=== PATIENT | female | born 1995 | race Caucasian/White ===

== ENCOUNTER 2018-09-10 23:27 | Emergency (ER) | payer MEDICAID, OTHER ==
[~2018-09-10] VITALS: Ht 160 cm; Wt 99.8 kg
[~2018-09-10 23:27] MED LIST: PREN-385 PO
[2018-09-10 23:30] VITALS: BP 127/64
--- NOTE | 2018-09-10 23:33 | NUR ---
TO LOBBY A/W BED, AMBULATORY
--- NOTE | 2018-09-10 23:44 | NUR ---
PT AMUBLATED TO BED #4
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
--- NOTE | 2018-09-11 00:11 | NUR ---
X-RAY AT BEDSIDE.
--- NOTE | 2018-09-11 00:21 | NUR ---
PATIENT TAKEN TO CT.
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
--- NOTE | 2018-09-11 01:28 | NUR ---
Patient discharged with v/s stable. Written and verbal after care instructions given and explained. Patient alert, oriented and verbalized understanding of instructions. Ambulatory with steady gait. All questions addressed prior to discharge. ID band removed. Patient advised to follow up with PMD. Rx of Claridge and Ibuprofen given. Patient educated on indication of medication including possible reaction and side effects. Opportunity to ask questions provided and answered.
== END 2018-09-11 01:28 | disposition home or self-care (01) ==
LOC: MED 23:27
DX: S00.81XA Abrasion of other part of head, initial encounter (principal); S20.319A Abrasion of unspecified front wall of thorax, initial encounter; S40.812A Abrasion of left upper arm, initial encounter; S40.811A Abrasion of right upper arm, initial encounter; S60.512A Abrasion of left hand, initial encounter; S60.811A Abrasion of right wrist, initial encounter; Z88.0 Allergy status to penicillin; Z79.899 Other long term (current) drug therapy; Y04.2XXA Assault by strike against or bumped into by another person, initial encounter; Y93.89 Activity, other specified; Y92.89 Other specified places as the place of occurrence of the external cause; Y99.8 Other external cause status
CPT/HCPCS: 70450; 73030; 73130; 81025; 90471; 90715; 99284; Q0092

== ENCOUNTER 2018-10-27 21:18 | Emergency (ER) | payer MEDICAID, OTHER ==
[~2018-10-27] VITALS: Ht 160 cm; Wt 100.7 kg
[2018-10-27 21:35] VITALS: BP 119/66
--- NOTE | 2018-10-27 21:37 | NUR ---
PT AMBULATED TO LOBBY
--- NOTE | 2018-10-27 22:04 | NUR ---
PT AMBULATED TO BED 3
--- NOTE | 2018-10-27 22:40 | NUR ---
ER-MD CAME BY BEDSIDE TO EVALUATE PT.
--- NOTE | 2018-10-27 22:52 | NUR ---
PORTABLE CXR DONE.
--- NOTE | 2018-10-27 22:59 | NUR ---
12 LEAD EKG DONE BY SANJUANA ARRIAGA.
--- NOTE | 2018-10-27 23:20 | NUR ---
DISCHARGED STABLE AND IMPROVED. VERBAL AND WRITTEN AFTERCARE INSTRUCTIONS GIVEN. VERBALIZED UNDERSTANDING.
[2018-10-27 23:30] VITALS: BP 119/68
== END 2018-10-27 23:20 | disposition home or self-care (01) ==
LOC: MED 21:18
DX: R09.1 Pleurisy (principal); R42 Dizziness and giddiness; I48.91 Unspecified atrial fibrillation; F41.9 Anxiety disorder, unspecified; F32.9 Major depressive disorder, single episode, unspecified; Z88.0 Allergy status to penicillin; Z79.899 Other long term (current) drug therapy
CPT/HCPCS: 71045; 93005; 99283; Q0092

== ENCOUNTER 2018-12-12 03:29 | Emergency (ER) | payer OTHER ==
[~2018-12-12] VITALS: Ht 160 cm; Wt 99.8 kg
[2018-12-12 03:35] VITALS: BP 123/73
--- NOTE | 2018-12-12 03:41 | NUR ---
PT AMBULATED TO LOBBY.
--- NOTE | 2018-12-12 04:35 | NUR ---
PT AMBULATED TO BED 03
--- NOTE | 2018-12-12 04:40 | NUR ---
23/F PRESENTED TO ED. C/O PAIN TO BILATERAL LOWER EXTREMITIES RADIATES TO FEET. 7/10 PAIN DESCRIBED PRESSURE WHEN AMBULATING. MULTIPLE BRUISES TO BILATERAL LOWER EXTREMITIES. PT WORKS FOR [employer], WALKS A LOT FOR WORK. STATES PAIN HAS BEEN AT ITS WORST X1 DAY. PT TOOK IBUPROPHEN FOR PAIN RELIEF PRIOR TO ARRIVING TO ED. DENIES N/V/D. NO WARMTH TO LOWER EXTREMITIES NOTED. SLIGHT EDEMA TO BLE NOTED. PAST MED HX ANXIETY, BIPOLAR, AND DEPRESSION. RX PT DOESN'T REMEMBER MED NAMES. DENIES ALLERGIES. WILL CONTINUE TO MONITOR.
--- NOTE | 2018-12-12 04:59 | NUR ---
PT BEING EXAMINED BY DR WATKINS.
[2018-12-12] MEDS ORDERED: ACETAMINOPHEN 325 MG TAB PO ONE (05:10)
--- NOTE | 2018-12-12 06:36 | NUR ---
PT SLEEPING IN BED. NO SIGNS OF DISTRESS NOTED. PT STATES PAIN HAS DECREASED. WILL CONTINUE TO MONITOR.
--- NOTE | 2018-12-12 07:13 | NUR ---
RECEIVED REPORT FROM HENRY SAVAGE.
--- NOTE | 2018-12-12 07:13 | NUR ---
BEDSIDE REPORT GIVEN TO DONG SAVAGE. PT IN STABLE CONDITION.
--- NOTE | 2018-12-12 07:59 | NUR ---
Patient discharged with v/s stable. Written and verbal after care instructions given and explained. Patient verbalized understanding. Ambulatory with steady gait. All questions addressed prior to discharge. Advised to follow up with PMD.
[2018-12-12 08:00] VITALS: BP 111/64
== END 2018-12-12 07:59 | disposition home or self-care (01) ==
LOC: MED 03:29
DX: R60.0 Localized edema (principal); M79.89 Other specified soft tissue disorders; F41.9 Anxiety disorder, unspecified; Z88.0 Allergy status to penicillin; Z79.899 Other long term (current) drug therapy
CPT/HCPCS: 93971; 99284; Q0092

== ENCOUNTER 2018-12-22 12:41 | Emergency (ER) | payer OTHER ==
[~2018-12-22] VITALS: Ht 160 cm; Wt 99.3 kg
[2018-12-22 12:45] VITALS: BP 126/67
[2018-12-22 14:51] VITALS: BP 119/81
== END 2018-12-22 14:50 | disposition home or self-care (01) ==
LOC: MED 12:41
DX: M54.12 Radiculopathy, cervical region (principal); M54.41 Lumbago with sciatica, right side; F12.10 Cannabis abuse, uncomplicated; F17.200 Nicotine dependence, unspecified, uncomplicated; Z79.899 Other long term (current) drug therapy; Z88.0 Allergy status to penicillin; Z90.89 Acquired absence of other organs
CPT/HCPCS: 81002; 81025; 99283

== ENCOUNTER 2018-12-28 16:24 | Emergency (ER) | payer OTHER ==
[~2018-12-28] VITALS: Ht 160 cm; Wt 98.2 kg
[2018-12-28 16:34] VITALS: BP 115/70
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
--- NOTE | 2018-12-28 16:52 | NUR ---
DR DIETRICH AT BEDSIDE
[2018-12-28] MEDS ORDERED: KETOROLAC 60 MG/2 ML VIAL IM ONE (16:55)
--- NOTE | 2018-12-28 18:00 | NUR ---
PT RETURNED FROM CT
--- NOTE | 2018-12-28 18:43 | NUR ---
pt given blanket and lights turned off for comfort. vss at this time. pt [id number]
--- NOTE | 2018-12-28 18:44 | NUR ---
pending ct results
[2018-12-28 19:28] VITALS: BP 111/63
--- NOTE | 2018-12-28 19:28 | NUR ---
PT DISCHARGED WITH PAPERWORK. NO RX PROVIDED. EDUCATED PT REGARDING NONPHARM INTERVENTIONS FOR PAIN. EDUCATED PT REGARDING D/C DIAGNOSIS AND INSTRUCTIONS. PT VERBALIZED UNDERSTANDING OF TEACHING. TOLD PT TO FOLLOW UP WITH PCP AND WHEN TO RETURN TO ED. PT VSS. ALL QUESTIONS ANSWERED.
== END 2018-12-28 16:25 | disposition home or self-care (01) ==
LOC: MED 16:24
DX: M51.34 Other intervertebral disc degeneration, thoracic region (principal); R51 Headache; R32 Unspecified urinary incontinence; M54.5 Low back pain; R42 Dizziness and giddiness; Z88.0 Allergy status to penicillin; Z90.89 Acquired absence of other organs; Z79.899 Other long term (current) drug therapy
CPT/HCPCS: 72128; 72131; 81002; 81025; 96372; 99284; J1885

== ENCOUNTER 2019-08-13 21:48 | Emergency (ER) | payer OTHER ==
[~2019-08-13] VITALS: Ht 160 cm; Wt 106.6 kg
[2019-08-13 22:00] VITALS: BP 138/77
--- NOTE | 2019-08-13 22:00 | NUR ---
PT AMBULATED TO BED 1 WITH STEADY GAIT
--- NOTE | 2019-08-13 22:18 | NUR ---
24 Y/O FEMALE C/O IUD REMOVED 1 WEEK AGO AND SINCE HAD A LIGHT PERIOD , 2 DAYS OF BLEEDING, WHICH PT STAETS IS NOT NORMAL FOR HER. PT HAS NOTICED CRAMPS AND MIGRAINES. FEELS ALLERGIES ARE ACTING UP AND EYES ARE ITCHY AND WATERY, WHICH PT STATES SHE ONLY GETS ALLERGIES WHEN PT HAS BEEN . PT STATES HAD NEGATIVE TEST WHEN IUD WAS REMOVED AND THEN TOOK A TEST YESTTERDAY AND GOT A FAINT POSITIVE, SO PT WANTS TO KNOW IF SHE IS OR IS NOT . DENIES N/V/D; SKIN IS PINK/WARM/DRY; AAOX4 WITH EVEN AND STEADY GAIT; PT DENIES ANY FEVER, CP, SOB, OR COUGH AT THIS TIME; PATIENT STATES PAIN OF 8/10 AT THIS TIME; VSS; PATIENT POSITIONED FOR COMFORT; HOB ELEVATED; BEDRAILS UP X1; BED DOWN AND LOCKED. MEDICAL: 2 /TONSILECTOMY ALLERGIES: PENICILLING (BREAKS OUT IN RASH)
[2019-08-13] MEDS ORDERED: KETOROLAC 60 MG/2 ML VIAL IM ONE (22:30)
--- NOTE | 2019-08-13 22:41 | NUR ---
US AT BEDSIDE
--- NOTE | 2019-08-13 23:31 | NUR ---
PT RESTING IN BED IN POSITION OF COMFORT ON CELL PHONE, BED LOW AND LOCKED, 2 SIDERAILS UP, VSS. PT STATES PAIN RELIEF FROM TORADOL MEDICATION. PAIN 05/16. WILL CONTINUE TO MONITOR.
--- NOTE | 2019-08-14 00:45 | NUR ---
PT RESTING IN BED IN POSITION OF COMFORT, BED LOW AND LOCKED, 2 SIDERAILS UP, VSS. WILL CONTINUE TO MONITOR.
[2019-08-14 01:34] VITALS: BP 135/56
--- NOTE | 2019-08-14 01:34 | NUR ---
Patient discharged with v/s stable. Written and verbal after care instructions given and explained. Patient alert, oriented and verbalized understanding of instructions. Ambulatory with steady gait. All questions addressed prior to discharge. ID band removed. Patient advised to follow up with PMD. Rx of MOTRIN/CILOXAN given. Patient educated on indication of medication including possible reaction and side effects. Opportunity to ask questions provided and answered.
== END 2019-08-14 01:34 | disposition home or self-care (01) ==
LOC: MED 21:48
DX: H18.829 Corneal disorder due to contact lens, unspecified eye (principal); M54.81 Occipital neuralgia; M54.5 Low back pain; R10.2 Pelvic and perineal pain; R03.0 Elevated blood-pressure reading, without diagnosis of hypertension; Z88.0 Allergy status to penicillin; Z90.49 Acquired absence of other specified parts of digestive tract; Z98.890 Other specified postprocedural states; Z79.899 Other long term (current) drug therapy
CPT/HCPCS: 76705; 76856; 81002; 81025; 96372; 99285; J1885; Q0092; 99284

== ENCOUNTER 2020-11-14 16:13 | Emergency (ER) | payer OTHER ==
[~2020-11-14] VITALS: Ht 167.6 cm; Wt 90.7 kg
--- NOTE | 2020-11-14 16:13 | NUR ---
PT BIBA AND PLACED IN ER LOBBY TO WAIT FOR MSE OR AVAILABLE BED.
[2020-11-14 16:18] VITALS: BP 152/89
[2020-11-14] MEDS ORDERED: IBUPROFEN 600 MG TAB PO ONE (17:20)
[2020-11-14] MEDS ORDERED: HYDR-636 PO (17:35)
--- NOTE | 2020-11-14 17:44 | NUR ---
Patient discharged with v/s stable. Written and verbal after care instructions given and explained. Patient alert, oriented and verbalized understanding of instructions. Ambulatory with steady gait. All questions addressed prior to discharge. ID band removed. Patient advised to follow up with PMD. Rx of Hydroxyzine given. Patient educated on indication of medication including possible reaction and side effects. Opportunity to ask questions provided and answered.
== END 2020-11-14 17:44 | disposition home or self-care (01) ==
LOC: MED 16:13
DX: F41.9 Anxiety disorder, unspecified (principal); Z88.0 Allergy status to penicillin
CPT/HCPCS: 93005; 99283

== ENCOUNTER 2021-11-25 19:53 | Emergency (ER) | payer OTHER ==
[~2021-11-25] VITALS: Ht 160 cm; Wt 99.8 kg
[~2021-11-25 19:53] MED LIST changes: +HYDR-636 PO
[2021-11-25 20:39] VITALS: BP 125/67
--- NOTE | 2021-11-25 20:39 | NUR ---
ASSESSED BY PA IN BED 11
--- NOTE | 2021-11-25 20:42 | NUR ---
PT SENT TO LOBBY.
--- NOTE | 2021-11-25 22:05 | NUR ---
SEEN AND EXAMINED BY SHERIE
--- NOTE | 2021-11-25 22:23 | NUR ---
PT TO BED 09.
[2021-11-25] MEDS ORDERED: HYDROcodone/APAP 5/325 MG 1 TAB TAB PO ONE (22:45)
[2021-11-25] MEDS ORDERED: CLIN300C2 PO (22:51)
[2021-11-25] MEDS ORDERED: TRAM50TA3 PO (22:51)
--- NOTE | 2021-11-25 23:07 | NUR ---
PT REFUSE TDAP, STATES SHE IS UP TO DATE ON TDAP.
[2021-11-25 23:08] VITALS: BP 125/67
--- NOTE | 2021-11-25 23:08 | NUR ---
Patient discharged with v/s stable. Written and verbal after care instructions given and explained. Patient alert, oriented and verbalized understanding of instructions. Ambulatory with steady gait. All questions addressed prior to discharge. ID band removed. Patient advised to follow up with PMD. Rx of CLEOCIN AND TRAMADOL given. Patient educated on indication of medication including possible reaction and side effects. Opportunity to ask questions provided and answered.
== END 2021-11-25 23:08 | disposition home or self-care (01) ==
LOC: MED 19:53
DX: S92.912A Unspecified fracture of left toe(s), initial encounter for closed fracture (principal); Z88.0 Allergy status to penicillin; W22.8XXA Striking against or struck by other objects, initial encounter; Y93.89 Activity, other specified; Y92.89 Other specified places as the place of occurrence of the external cause; Y99.8 Other external cause status
CPT/HCPCS: 73660; 90715; 99283